=== PATIENT | female | born 1995 | race Caucasian/White ===

== ENCOUNTER → 2025-01-08 | Outpatient (CLI) | payer OTHER | END | disposition home or self-care (01) | LOC: NST 17:15 | PROVIDERS: ATTEND Obstetrics & Gynecology Gynecology | DX: Z34.83 Encounter for supervision of other normal pregnancy, third trimester (principal) ==

== ENCOUNTER 2025-02-10 02:31 | Inpatient (IN) | payer OTHER ==
[2025-02-10] VITALS (8 sets, daily range): BP systolic 10–105; BP diastolic 48–69
[~2025-02-10] VITALS: Ht 157.5 cm; Wt 68.9 kg
[2025-02-10] MEDS ORDERED: RINGERS SOLUTION,LACTATED 1,000 ML IV SCH (02:45)
[2025-02-10] MEDS ORDERED: MORPHINE SULFATE 4 MG/ML CARTRIDGE IV PRN (02:45)
[2025-02-10] MEDS ORDERED: IRON325 MG PO (02:57)
[2025-02-10 03:15] LABS: BASO % 0.6 % (0.1-1.2); EOS # 0.11 (0.04-0.54); EOS % 0.9 % (0.7-7.0); LYMPH # 2.75 (1.18-3.74); LYMPH % 23.2 % (19.3-53.1); MEAN PLATELET VOLUME 10.90 fl (9.4-12.4); MONO # 1.16 (0.24-0.82); MONO % 9.8 % (4.7-12.5); NEUT # 7.64 (1.56-6.13); NEUT % 64.6 % (34.0-71.1); RED CELL DISTRIBUTION WIDTH 16.8 % (11.6-14.4)
[2025-02-10 03:30] LABS: INR 0.96
[2025-02-10 03:32] LABS: EOSINOPHIL MAN 1.0 %; LYMPHOCYTE MAN 10.0 %; MONOCYTE MAN 13.0 %; NEUTROPHILS MAN 70.0 %
[2025-02-10 03:36] LABS: ALT/SGPT 16.0 U/L (12-78); AST/SGOT 14.0 U/L (15-37); BILIRUBIN TOTAL 0.29 mg/dL (0.3-1.2); BUN CREA RATIO 8.0 (7.0-25.0); CREATININE SERUM 0.59 mg/dL (0.55-1.02); GFR 118.88; GLOBULINA 3.9 G/DL (2.4-3.5); GLUCOSE FASTING 106.0 mg/dL (65-100); OSMOLALITY SERUM 279.0 MOSM/KG (275-295)
[2025-02-10] MEDS ORDERED: CHLORHEXIDINE GLUCONATE 120 ML BOTTLE TOP ONE (09:28)
[2025-02-10] MEDS ORDERED: LIDOCAINE HCL 1% 10ML VIAL ONE (09:28)
[2025-02-10] MEDS ORDERED: ERYTHROMYCIN BASE OPHT 1GM EACH TUBE OP ONE (09:28)
[2025-02-10] MEDS ORDERED: OXYTOCIN 20 UNITS/1000ML RL PIGGYBAG IV ONE ×2 (09:28→12:13)
[2025-02-10] MEDS ORDERED: OXYTOCIN 1,000 ML IV SCH (10:45)
[2025-02-10] MEDS ORDERED: CHLORHEXIDINE GLUCONATE 120 ML BOTTLE TOP SCH (10:45)
[2025-02-11 00:52] VITALS: BP 12/73
[2025-02-11 06:57] LABS: BASO % 0.5 % (0.1-1.2); EOS # 0.10 (0.04-0.54); EOS % 0.9 % (0.7-7.0); LYMPH # 2.67 (1.18-3.74); LYMPH % 22.9 % (19.3-53.1); MEAN PLATELET VOLUME 11.00 fl (9.4-12.4); MONO # 0.84 (0.24-0.82); MONO % 7.2 % (4.7-12.5); NEUT # 7.90 (1.56-6.13); NEUT % 67.8 % (34.0-71.1); RED CELL DISTRIBUTION WIDTH 17.0 % (11.6-14.4)
[2025-02-11 07:33] LABS: BAND MAN 5.0 %; EOSINOPHIL MAN 3.0 %; LYMPHOCYTE MAN 22.0 %; MONOCYTE MAN 6.0 %; NEUTROPHILS MAN 60.0 %
[2025-02-11 08:00] VITALS: BP 99/67
[2025-02-11 16:20] VITALS: BP 100/64
[2025-02-11 21:25] VITALS: BP 103/67
[2025-02-12 00:07] VITALS: BP 93/55
[2025-02-12 08:12] VITALS: BP 94/60
== END 2025-02-12 13:19 | DRG 807 ==
LOC: OB/GYN 02:31 → LDR 02:31 → OB/GYN 11:06
PROVIDERS: ADMIT Obstetrics & Gynecology; ATTEND Obstetrics & Gynecology Maternal & Fetal Medicine
PROC: 10E0XZZ Delivery of Products of Conception, External Approach (ICD-10-PCS; principal; 2025-02-10)
PROC: 0KQM0ZZ Repair Perineum Muscle, Open Approach (ICD-10-PCS; 2025-02-10)
PROC: 4A1HXCZ Monitoring of Products of Conception, Cardiac Rate, External Approach (ICD-10-PCS; 2025-02-10)
DX: O70.1 Second degree perineal laceration during delivery (principal); Z37.0 Single live birth; Z3A.38 38 weeks gestation of pregnancy